=== PATIENT | female | born 1985 | race Caucasian/White ===

== ENCOUNTER 2019-05-29 14:27 | Inpatient (IN) ==
[2019-05-29] MEDS ORDERED: NS 1,000 ML IV ONE ×4 (14:38→17:14)
[2019-05-29] MEDS ORDERED: ATIVAN IV ONE (14:38)
[2019-05-29] MEDS ORDERED: BENADRYL IV ONE (14:38)
[2019-05-29] MEDS ORDERED: TORADOL IV ONE (14:39)
[2019-05-29] MEDS ORDERED: LOPRESSOR IV ONE (14:42)
[2019-05-29 15:09] LABS: URINE SOURCE CLEAN CATCH
[2019-05-29 15:12] LABS: BASO# 0.03 X1000 (0.0-0.2); BASO% 0.2 % (0.0-0.8); HEMATOCRIT 37.5 % (37.0-47.0); HEMOGLOBIN 12.5 g/dL (12.0-16.0); IMM GRAN# 0.06 X1000 (0.0-0.04); IMM GRAN% 0.3 % (0.0-0.5); LYMPH# 3.54 X1000 (1.2-3.4); LYMPH% 18.5 % (20.5-51.1); MCH 29.5 PG (27-31); MCHC 33.3 g/dL (33-37); MCV 88.4 FL (81-99); MONO# 1.18 X1000 (0.11-0.59); MONO% 6.2 % (1.7-9.3); NEUT# 14.36 X1000 (1.4-6.5); NEUT% 74.8 % (42.2-75.2); PLT 408 X1000 (130-400); RBC 4.24 XMIL (4.2-5.4); RDW 14.3 % (11.5-14.5); WBC 19.17 X1000 (4.8-10.8)
[2019-05-29 15:29] LABS: AGAP 22; ALB/GLOB RATIO 1.2; ALBUMIN 4.7 g/dL (3.5-5.0); ALKALINE PHOSPHATASE 56 U/L (32-104); BUN 13 mg/dL (8-22); CALCIUM 9.8 mg/dL (8.8-10.2); CHLORIDE 99 mmol/L (98-107); COSMO 279; CREATININE 0.7 mg/dL (0.5-0.9); ESTIMATED GFR > 60; GLUCOSE 124 mg/dL (70-104); GOT 20 U/L (10-30); GPT 15 U/L (10-36); POTASSIUM 3.6 mmol/L (3.5-5.1); SODIUM 139 mmol/L (136-145); TCO2 18 mmol/L (25-35); TOTAL BILIRUBIN 1.05 mg/dL (0.20-1.00); TOTAL PROTEIN 8.5 g/dL (6.3-8.3)
--- NOTE | 2019-05-29 15:29 | EKG Report ---
Test Performed on : 05/29/2019 2:32:33 PM Test Reason : tachycardia Blood Pressure : / mmHG Vent. Rate : 151 BPM Atrial Rate : 151 BPM P-R Int : 132 ms QRS Dur : 074 ms QT Int : 254 ms P-R-T Axes : 037 018 030 degrees QTc Int : 402 ms Sinus tachycardia. Otherwise normal ECG No previous ECGs available Unconfirmed Result
[2019-05-29 15:36] LABS: BILIRUBIN URINE NEGATIVE (NEGATIVE); BLOOD URINE NEGATIVE (NEGATIVE); COLOR ORANGE; GLUCOSE URINE NEGATIVE (NEGATIVE); KETONE URINE TRACE mg/dL (NEGATIVE); LEUKOCYTES URINE NEGATIVE (NEGATIVE); NITRITE URINE POSITIVE (NEGATIVE); PROTEIN URINE 30 mg/dL (NEGATIVE); SP GRAVITY URINE 1.034; TURBIDITY URINE HAZY (CLEAR); UROBILINOGEN URINE NORMAL (NORMAL)
[2019-05-29 15:38] LABS: UR EPITHELIAL CELLS <10 /HPF (<10); URINE BACTERIA 4+ /HPF; URINE RBC <10 /HPF (<10); URINE WBC <10 /HPF (<10)
--- NOTE | 2019-05-29 15:40 | Diag Imaging Result Doc PS360 ---
EXAM: CHEST-PORTABLE HISTORY: tachycardia TECHNIQUE: Single view COMPARISON: 04/27/2012 FINDINGS: The lungs are well expanded. The heart is not enlarged. The vessels are not distended. There are no infiltrates. No effusion identified. No change in the right upper lung nodule. IMPRESSION: Stable chest Electronically signed by Omega Dodd 05/29/2019 3:38 PM
[2019-05-29] MEDS ORDERED: ROCEPHIN 1 GM in NS 50 ML IV ONE ×2 (16:00→16:41)
[2019-05-29] MEDS ORDERED: TYLENOL PO ONE (16:04)
--- NOTE | 2019-05-29 17:13 | PROVIDER DOCUMENTATION ---
This chart was entered by Linda Zarate Scribe, acting as scribe for Owen Manning MD. HPI-General Adult - General Chief Complaint: Palpitations Stated Complaint: TACHYCARDIA Time Seen by Provider: 05/29/19 14:28 Source: patient (pt is poor historian due to AMS), EMS (First response) Allergies/Adverse Reactions: Patient Allergies Allergy/AdvReac Type Severity Reaction Status Date / Time latex Allergy ITCHING Verified 05/29/19 14:50 Home Medications: Home Medication List Medication Instructions Recorded Confirmed Last Taken Type Ciprofloxacin [Cipro] 250 mg PO BID #6 tablet 08/22/16 Unknown Rx Ondansetron HCl [Zofran] 4 mg PO Q6H PRN #20 tablet 08/22/16 Unknown Rx Cephalexin [Keflex] 500 mg PO TID #21 capsule 10/09/16 Unknown Rx Promethazine [Phenergan] 25 mg PO Q6H PRN PRN #20 tablet 10/09/16 Unknown Rx Armodafinil [Nuvigil] 150 mg PO DAILY 05/29/19 05/29/19 1 Day Ago History ~05/28/19 - History of Present Illness -Gen Adult Nature of Presenting Problems: 33yowf brought into ED via EMS after family called about possible vertigo that began last night. EMS states she had right ear surgery about 5 weeks ago and pt has a hx of SVT's. Her pre-hospital EKG showed sinus tachycardia. She had mild AMS and stated she "can't think" when Dr. Manning was asking her questions. She stated she had head and mouth pain, has been vomiting for 2 days, and is worried about a possible ear infection from her surgery. She also stated she saw Dr. Borja a few weeks ago and has a new rx for NuVigil. Location of Pain/Injury: reports: head (left ear) Pain Radiation: reports: other (mouth) Quality of Pain: reports: other (patient sts it was difficult to describe pain) Severity: reports: mild Onset/Duration: reports: last night Timing: reports: still present, constant Context/Activities at Onset: reports: light activity Modifying Factors: improves with: nothing Associated Symptoms: reports: EENT symptoms, vomiting (vomiting for 2 days), other (patient states she "can't think"). denies: chest pain, shortness of breath Similar Symptoms Previously?: Yes Recently seen or treated by another doctor?: Yes (Dr. Borja) Review of Systems - Adult - REVIEW OF SYSTEMS - ADULT Constitutional: reports: no symptoms reported Eyes: reports: no symptoms reported Ears, Nose, Mouth & Throat: reports: ear pain Cardiovascular: denies: chest pain, edema, syncope Respiratory: denies: cough, shortness of breath Gastrointestinal: reports: see HPI, vomiting (sx for 2 days). denies: abdominal pain, diarrhea Genitourinary: reports: no symptoms reported Musculoskeletal: reports: no symptoms reported Integumentary: reports: no symptoms reported Neurological: reports: see HPI, headache/migraines, other (patient states she "can't think" when Dr. Manning was asking questions). denies: slurred speech Psychiatric: reports: no symptoms reported Endocrine: reports: no symptoms reported Hematologic/Lymphatic: reports: no symptoms reported Allergic/Immunologic: reports: no symptoms reported All Other Systems: Reviewed and Negative Past History - Adult - PAST MEDICAL HISTORY-ADULT Review of Records: reports: Nursing Assessment Review, Medications Reviewed, Social history reviewed & non-contributory. Major Childhood Illnesses: reports: denies history Cardiovascular: reports: denies history Respiratory: reports: asthma Gastrointestinal: reports: denies history Obstetrical/Gynecological: reports: denies history Genitourinary: reports: kidney stones Musculoskeletal: reports: denies history Neurological: reports: denies history Psychiatric: reports: other (ADD) Endocrine/Immune: reports: denies history Other Conditions: reports: denies history - PRIOR SURGERIES/PROCEDURES Surgical/Procedure History: reports: recent surgery (recent left ear surgery), BTL, - IMMUNIZATION STATUS Childhood Immunizations: See Nurse Assessment Flu Vaccine: See Nurse Assessment - FAMILY HISTORY Family History: reviewed, not pertinent - SOCIAL HISTORY Smoking: denies Substance Use: denies Alcohol Use Frequency: never Living Situation: family Physical Exam-General - PHYSICAL EXAM-ADULT Exam Limited by: slightly confused Initial Vital Signs Reviewed: Yes (Temp 100.3, Pulse 143, RR 26, BP 140/102) - CONSTITUTIONAL General Appearance: alert, anxious - EYES Eyes: PERRL/EOMI, pink conjunctivae - HEAD, EARS, NOSE, MOUTH & THROAT HENMT: moist mucous membranes, other (mild tenderness with movement of left tragus; left ear canal obstructed by white material) - NECK Neck: non-tender, full range of motion, supple. negative: Brudzinski's sign, meningismus, other (koernig's) - RESPIRATORY Respiratory: increased rate - CARDIOVASCULAR Cardiovascular: tachycardia. 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 negative: normal thought process Progress - PLAN OF CARE/RESULTS Progress/Plan/Lab Results: Vital Signs - 8 hr 05/29/19 14:38 Temperature 100.3 F H Pulse Rate 143 H Respiratory Rate 26 H Blood Pressure 140/102 O2 Sat by Pulse Oximetry 100 Orders Category Date Time Status ED: Urine Bedside ORDERED Care 05/29/19 14:39 Active NEWS Score >or=5:Order NEWS Bundle S.O. NOW Care 05/29/19 14:44 Active Nursing- Obtain EKG once Care 05/29/19 14:38 Active CHEST-PORTABLE [RAD] Stat Exams 05/29/19 14:39 Ordered CBC WITH ELECTRONIC DIFF [HEME] Stat Lab 05/29/19 14:38 Uncollected COMPREHENSIVE METABOLIC PANEL [CHEM] Stat Lab 05/29/19 14:38 Uncollected MAGNESIUM [CHEM] Stat Lab 05/29/19 14:38 Uncollected PRO B-NATRIURETIC PEPTIDE Stat Lab 05/29/19 14:38 Uncollected TROPONIN T HIGH SENSITIVITY Stat Lab 05/29/19 14:38 Uncollected TSH Stat Lab 05/29/19 14:38 Ordered URINALYSIS W/POSS RFLX CULT [URINALYSIS] Stat Lab 05/29/19 14:39 Uncollected URINE DRUG SCREEN Stat Lab 05/29/19 14:39 Uncollected 0.9% Sodium Chloride Inj [Ns] 1,000 ml Med 05/29/19 14:38 Active IV 999 mls/hr Diphenhydramine [Benadryl] Med 05/29/19 14:38 Discontinued 25 mg IV NOW ONE Ketorolac [Toradol] Med 05/29/19 14:39 Discontinued 30 mg IV NOW ONE Lorazepam [Ativan] Med 05/29/19 14:38 Discontinued 1 mg IV NOW ONE Metoprolol [Lopressor] Med 05/29/19 14:42 Discontinued 5 mg IV NOW ONE EKG [EKG] Stat Ther 05/29/19 14:38 Ordered Result Diagrams: 05/29/19 11:45 05/29/19 11:45 - REASSESSMENT Reassessment #1 Time Reassessed: 16:41 Status: improving (GIven IVF bolus, po acetaminophen, IV rocephin 2gm for pyelonephritis. Patient has severe sepsis without septic shock. Will need admission. 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 The heart is not enlarged. The vessels are not distended. There are no infiltrates. No effusion identified. No change in the right upper lung nodule. IMPRESSION: Stable chest Electronically signed by Omega Dodd 05/29/2019 3:38 PM) - CONSULTS/PCP/HOSPITALIST Notification #1 *Consult/PCP/Hospitalist*: Jonh paged at [phone] Time Discussed: 17:13 Consult Disposition: Admit (and order CT renal stone to r/o kidney stone. He will see later) Departure - Departure Date of Disposition Decision: 05/29/19 Time of Disposition Decision: 16:43 DIAGNOSIS: Pyelonephritis due to Escherichia coli Sepsis with acute organ dysfunction Qualifiers: Sepsis type: sepsis due to unspecified organism Severe sepsis acute organ dysfunction type: unspecified Severe sepsis shock status: without septic shock Qualified Code(s): A41.9 - Sepsis, unspecified organism; R65.20 - Severe sepsis without septic shock Disposition: ADMITTED INPATIENT 09 Certified Medical Emergency: Emergent Condition: Stable Referrals and Follow-Ups: Kenn Borja Jr, MD [Primary Care Provider] - - Critical Care Note This patient required my direct & personal management of CC.: Yes Total Time (mins): 40 Critical Care Statement: This patient required my direct personal management to treat or rule out processes, the absence of which, could potentiallly result in sudden, clinically significant life or limb threatening deterioration. Attestation - Physician/ SCAR Attestation Patient care was provided by Advanced Practice Provider:: No The physician spent face to face time with patient:: Yes Advanced Practice Provider documentation review:: Supervising physician onsite and consulted in the evaluation and care of this patient. The physician did have a face to face encounter with the patient. This chart was documented by the indicated scribe, (Linda Zarate Scribe) and accurately reflects the services I performed and decisions made by me, Owen Manning MD, as attested by the provider's signature.
[2019-05-29] MEDS ORDERED: TORADOL IV PRN (17:14)
[2019-05-29] MEDS ORDERED: ZOFRAN PO PRN (17:14)
--- NOTE | 2019-05-29 19:02 | Diag Imaging Result Doc PS360 ---
EXAM: CT HEAD W/O CONTRAST INDICATION: left sided headache, recent left TM surgery TECHNIQUE: This exam was performed using automated exposure control, adjustment of mA or kV according to patient size, and/or use of iterative reconstruction technique. COMPARISON: None. FINDINGS: There is no definite acute infarct given the limited sensitivity of CT versus MRI. There is no discrete intracranial mass, mass effect, or intracranial hemorrhage. There is thickening at the inferior aspect of the left tympanic membrane. Surrounding soft tissues and bony structures are essentially unremarkable, otherwise. IMPRESSION: 1.No evidence of acute intracranial pathology. 2.Thickening at the inferior aspect of the left tympanic membrane, which may be related to surgery. Electronically signed by Ken Street 05/29/2019 6:59 PM
--- NOTE | 2019-05-29 19:09 | Diag Imaging Result Doc PS360 ---
EXAM: CT RENAL STONE SEARCH INDICATION: pyelo TECHNIQUE: This exam was performed using automated exposure control, adjustment of mA or kV according to patient size, and/or use of iterative reconstruction technique. COMPARISON: 04/27/2012 FINDINGS: The gallbladder, liver, spleen, pancreas, and adrenal glands are unremarkable. There is a punctate nonobstructing intrarenal stone associated with the left kidney. There are no ureteral stones and there is no hydronephrosis. The kidneys are otherwise unremarkable as imaged with unenhanced CT. No perinephric inflammatory changes are appreciated. There is a single droplet of gas in the lumen of the urinary bladder that could have been introduced during catheterization. There is no evidence of urinary bladder wall thickening. There is mild nodularity at the uterine fundal wall on the left that probably represents a small leiomyoma. The reproductive tract is grossly unremarkable as imaged, otherwise. The appendix is normal. There are a very few diverticuli involving the descending and proximal sigmoid colon. There is no evidence of diverticulitis. There is no focal bowel wall thickening or bowel obstruction appreciated. The remainder of the GI tract is unremarkable. No focal inflammatory changes, free abdominal gas, or free fluid is appreciated. IMPRESSION: 1.Punctate nonobstructing intrarenal stone on the left. No ureteral stones and no evidence of acute obstructive uropathy. 2.No inflammatory stranding identified around either kidney. 3.No other definite acute pathology by unenhanced CT. Electronically signed by Ken Street 05/29/2019 7:07 PM
--- NOTE | 2019-05-29 19:42 | HISTORY AND PHYSICAL ---
CHIEF COMPLAINT: Altered mental status, confusion, palpitations, headache, nausea, vomiting. HISTORY OF PRESENT ILLNESS: She is a 33-year-old white female who was brought in with the above symptoms in the ER. She had a fever 101. Urine dipstick positive for infection, history of kidney stones. Apparently, she has been taking tramadol and Nuvigil. She has some type of left ear surgery. Details are not known. It was done 5 weeks ago. She was tachycardic, altered mental status, cannot think of anything. The patient has white cell count of 19,000. CT head showed some postop changes in the left ear, and she is very confused in the PVC. Most of the history was obtained from the previous reports. Basically admitted to the hospital for altered mental status, fever workup, UTI. CT scan of the abdomen and pelvis showed no evidence of pyelonephritis and intrarenal stones noted. PAST MEDICAL HISTORY: History of possible sleep apnea and kidney stones, metabolic syndrome. PAST SURGICAL HISTORY: History of kidney stones extraction, tubal ligation, left ear surgery. MEDICATIONS: Nuvigil and tramadol. ALLERGIES: Latex. 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 Mother of 2 children. Drinks alcohol. No smoking. No drug abuse. FAMILY HISTORY: Mom is alive at 72. Daddy at 54, cause was not known. PURSE FRAMER HISTORY: Last period April 08. 2, para 2, 0. REVIEW OF SYSTEMS: Some headaches. Mental confusion. No neck pain. Cardiopulmonary: No chest pain, palpitations. No shortness of breath. Gastrointestinal: No abdominal pain, slightly tender on the left side. Genitourinary: No history of hesitancy, frequency. Extremities: No swelling of legs. No joint pain. Neurologic: No focal symptoms or weakness. PHYSICAL EXAMINATION: VITAL SIGNS: Temperature is 100.8 degrees, tachycardic. Hemodynamics were stable. 5 feet 3 inches and 176 pounds. HEENT: Atraumatic, normocephalic. Pupils equal, reactive to light. Tongue is in midline. NECK: Supple. No lymphadenopathy. CHEST: Bilateral air entry. CARDIOVASCULAR: Tachycardic. ABDOMEN: Belly is soft, slightly tender in the left lower quadrant. EXTREMITIES: No peripheral edema or cyanosis. NEUROLOGICAL: No obvious neurological deficits. No meningeal signs. INVESTIGATIONS: White cell count 19.1, hematocrit 37, platelets 408,000. SMA 7 is normal. Glucose 124. LFTs were normal. Urine dipstick was positive for infection. CT head reported no evidence of acute intracranial pathology. Thickening of the inferior aspect of left tympanic membrane, which may be related to surgery. Renal CT showed intramural leiomyoma. Punctate nonobstructive intrarenal stones on the left. No inflammatory stranding identified in either kidney. ASSESSMENT AND PLAN: A 33-year-old white female admitted to the hospital with altered mental status, fever, elevated white cell count, surgery on the left ear 5 weeks ago, details are not known. Plan is IV fluids, IV Zosyn. Closely watch for the meningeal signs and follow up on urinary tract infection symptoms with a culture and sensitivity. Deep venous thrombosis prophylaxis with Lovenox. For pain control, Toradol as needed, and urine drug screen is pending and Dr. Borja is going to follow up. cc: MD Kenn Goins Jr, MD
[2019-05-29] MEDS: LOVENOX SUBQ SCH (20:24)
[2019-05-29] MEDS: ZOSYN 3.375 GM in NS 50 ML IV SCH (20:25)
[2019-05-29 20:35] LABS: UR AMPHETAMINES QUAL NONE DETECTED (NONE DETECT); UR BARBITUATES QUAL NONE DETECTED (NONE DETECT); UR BENZODIAZEPIN QUAL NONE DETECTED (NONE DETECT); UR CANNABINOIDS QUAL NONE DETECTED (NONE DETECT); UR COCAINE QUAL NONE DETECTED (NONE DETECT); UR METHADONE QUAL NONE DETECTED (NONE DETECT); UR OPIATES QUAL PRESUMPTIVE POSITIVE (NONE DETECT); UR OXYCODONE QUAL NONE DETECTED (NONE DETECT); UR PCP QUAL NONE DETECTED (NONE DETECT)
[2019-05-29] MEDS: NS 1,000 ML IV SCH (21:00)
[2019-05-30] MEDS: ZOSYN 3.375 GM in NS 50 ML IV SCH ×4 (00:37→20:21)
[2019-05-30] MEDS: TORADOL IV PRN ×2 (00:55→07:35)
[2019-05-30 06:02] LABS: BASO# 0.03 X1000 (0.0-0.2); BASO% 0.3 % (0.0-0.8); EOS# 0.07 X1000 (0.0-0.7); EOS% 0.6 % (0.0-10.0); HEMATOCRIT 33.1 % (37.0-47.0); HEMOGLOBIN 10.8 g/dL (12.0-16.0); IMM GRAN# 0.03 X1000 (0.0-0.04); IMM GRAN% 0.3 % (0.0-0.5); LYMPH# 1.82 X1000 (1.2-3.4); LYMPH% 15.8 % (20.5-51.1); MCH 29.4 PG (27-31); MCHC 32.6 g/dL (33-37); MCV 90.2 FL (81-99); MONO% 8.7 % (1.7-9.3); NEUT# 8.56 X1000 (1.4-6.5); NEUT% 74.3 % (42.2-75.2); PLT 239 X1000 (130-400); RBC 3.67 XMIL (4.2-5.4); RDW 14.2 % (11.5-14.5); WBC 11.51 X1000 (4.8-10.8)
[2019-05-30 06:29] LABS: AGAP 13; ALB/GLOB RATIO 1.1; ALBUMIN 3.4 g/dL (3.5-5.0); ALKALINE PHOSPHATASE 44 U/L (32-104); BUN 6 mg/dL (8-22); CALCIUM 8.7 mg/dL (8.8-10.2); CHLORIDE 105 mmol/L (98-107); COSMO 271; CREATININE 0.5 mg/dL (0.5-0.9); ESTIMATED GFR > 60; GLUCOSE 96 mg/dL (70-104); GOT 18 U/L (10-30); GPT 10 U/L (10-36); POTASSIUM 3.5 mmol/L (3.5-5.1); SODIUM 137 mmol/L (136-145); TCO2 19 mmol/L (25-35); TOTAL BILIRUBIN 0.96 mg/dL (0.20-1.00); TOTAL PROTEIN 6.4 g/dL (6.3-8.3)
[2019-05-30] MEDS ORDERED: ROCEPHIN 2 GM in NS 50 ML IV SCH (08:00)
[2019-05-30] MEDS: NS 1,000 ML IV SCH ×2 (09:02→21:27)
--- NOTE | 2019-05-30 13:44 | PROGRESS NOTE ---
DATE: 05/30/2019 SUBJECTIVE: The patient is a little less confused than what she was. She is still hurting in her left ear. She really has no urinary tract symptoms. Came in with confusion and a high white count. She had left ear surgery that sounds like a tympanoplasty 3 weeks ago. She says her ear hurts and that she was draining out foul smelling material from her ear. She does not remember exactly who did her surgery, but said it was here in town. Apparently last night was even more confused[place] [id number] [place] [id number] after antibiotics. Urine culture was done because there was nitrite positivity, but really no pus in the urine. She says she started getting drainage down in her throat and started getting very dizzy with this and has just been confused and still feels hot she says. OBJECTIVE: Blood pressure is 115/65, respirations 12, pulse 78 regular, temp 98.8 degrees Fahrenheit. Did have a fever when she came in of 100.3 degrees, went up to 100.8 degrees, has been coming down since she has had antibiotics.HEENT: She is normocephalic. Lungs: Clear to auscultation and percussion without rhonchi, rales, or wheezes. Heart: Regular rate and rhythm without murmurs, gallops, friction rubs. Abdomen: Soft, active bowel sounds. No organomegaly or tenderness. Neurological: Intact grossly except that she is a little confused but did know the year now. She said that last night she did not. She seems to be growing gram-negative rods in her urine, so this still could be urinary tract infection. Possibly could have an infection with her ear since that is where her is. ASSESSMENT: 1. Rule out sepsis. 2. Probable UTI. 3. Status post ear surgery. 4. Altered mental status. PLAN: We will get an ENT to come take a look at her ear again. We will continue IV antibiotics. cc: Kenn Borja Jr, MD
[2019-05-30] MEDS: LOVENOX SUBQ SCH (20:21)
[2019-05-30] MEDS: CIPRODEX OTIC SUSPENSION LEFT EAR SCH (20:22)
[2019-05-31] MEDS: ZOSYN 3.375 GM in NS 50 ML IV SCH ×4 (02:50→20:54)
[2019-05-31 06:04] LABS: BASO# 0.02 X1000 (0.0-0.2); BASO% 0.2 % (0.0-0.8); EOS# 0.28 X1000 (0.0-0.7); EOS% 3.4 % (0.0-10.0); HEMATOCRIT 35.2 % (37.0-47.0); HEMOGLOBIN 11.6 g/dL (12.0-16.0); LYMPH# 2.65 X1000 (1.2-3.4); LYMPH% 31.7 % (20.5-51.1); MCH 29.7 PG (27-31); MCV 90.3 FL (81-99); MONO# 0.52 X1000 (0.11-0.59); MONO% 6.2 % (1.7-9.3); MPV 10.3 FL (7.4-10.4); NEUT# 4.88 X1000 (1.4-6.5); NEUT% 58.5 % (42.2-75.2); PLT 261 X1000 (130-400); RDW 14.2 % (11.5-14.5); WBC 8.35 X1000 (4.8-10.8)
[2019-05-31 06:24] LABS: AGAP 13; BUN 6 mg/dL (8-22); CALCIUM 9.2 mg/dL (8.8-10.2); CHLORIDE 102 mmol/L (98-107); COSMO 275; CREATININE 0.6 mg/dL (0.5-0.9); ESTIMATED GFR > 60; GLUCOSE 93 mg/dL (70-104); POTASSIUM 3.4 mmol/L (3.5-5.1); SODIUM 139 mmol/L (136-145); TCO2 24 mmol/L (25-35)
[2019-05-31] MEDS: CIPRODEX OTIC SUSPENSION LEFT EAR SCH ×2 (08:39→20:55)
[2019-05-31] MEDS: NS 1,000 ML IV SCH (10:57)
--- NOTE | 2019-05-31 11:58 | PROGRESS NOTE ---
DATE: 05/31/2019 SUBJECTIVE: The patient says she still has confusion, still does not remember who did her surgeries. She says she has had memory problems all her life, but this is much worse. She wanted to go home but I am concerned because of her memory. She does have a urinary tract infection with Escherichia coli and she has had recent ear surgery. CT scan of the head was really noncontributory toward anything that looked like a tumor or stroke. She does not really act like a meningitis, but said that she has had stuff running out of her left ear. I have a consult in with ENT, but they have not seen her yet. I have encouraged her to stay in the hospital and let us get her thinking cleared up and have ENT look at her ear. I am not sure whether she will do that or check out against medical advice, as she has been threatening to do that with the nurses even before I came in today. OBJECTIVE: Vital Signs: Blood pressure 118/63, respirations 17, pulse 54, temperature 98.1 degrees Fahrenheit. HEENT: She is normocephalic. EOMS intact. PERRLA. Throat clear. Lungs: Clear to auscultation and percussion without rhonchi, rales, or wheezes. Heart: Regular rate and rhythm without murmurs, gallops, friction rubs. Abdomen: Soft. Active bowel sounds. No organomegaly or tenderness. Neurological: Intact grossly except she looks anxious and she still has some lapses in her memory. Whether this is all from the urinary tract infection or there is something else going on, I am not sure at this point. PLAN: We will encourage her to continue with IV antibiotics at least for another day or 2 and have ENT evaluate her. As far as the memory problems go, I do not know whether this has been accentuated by the UTI and that she has had a problem, she has been on Nuvigil at home. cc: Kenn Borja Jr, MD
[2019-05-31 13:04] LABS: URINE SOURCE CLEAN CATCH
[2019-05-31 13:14] LABS: BILIRUBIN URINE NEGATIVE (NEGATIVE); BLOOD URINE NEGATIVE (NEGATIVE); COLOR YELLOW; GLUCOSE URINE NEGATIVE (NEGATIVE); KETONE URINE NEGATIVE (NEGATIVE); LEUKOCYTES URINE NEGATIVE (NEGATIVE); NITRITE URINE NEGATIVE (NEGATIVE); PROTEIN URINE TRACE mg/dL (NEGATIVE); SP GRAVITY URINE 1.021; TURBIDITY URINE HAZY (CLEAR); UROBILINOGEN URINE NORMAL (NORMAL)
[2019-05-31 13:20] LABS: UR EPITHELIAL CELLS >10 /HPF (<10); URINE BACTERIA NEGATIVE /HPF; URINE RBC <10 /HPF (<10); URINE WBC <10 /HPF (<10)
[2019-05-31 13:47] LABS: URINE YEAST PRESENT
[2019-05-31] MEDS: TYLENOL PO PRN (20:04)
[2019-05-31] MEDS: LOVENOX SUBQ SCH (20:55)
[2019-05-31] MEDS: TORADOL IV PRN (21:10)
[2019-06-01] MEDS: ZOSYN 3.375 GM in NS 50 ML IV SCH ×4 (01:33→20:17)
[2019-06-01] MEDS: NS 1,000 ML IV SCH ×2 (01:34→10:42)
[2019-06-01 05:53] LABS: BASO# 0.02 X1000 (0.0-0.2); BASO% 0.3 % (0.0-0.8); EOS# 0.32 X1000 (0.0-0.7); EOS% 4.7 % (0.0-10.0); HEMATOCRIT 31.2 % (37.0-47.0); HEMOGLOBIN 10.2 g/dL (12.0-16.0); IMM GRAN# 0.02 X1000 (0.0-0.04); IMM GRAN% 0.3 % (0.0-0.5); LYMPH# 2.27 X1000 (1.2-3.4); LYMPH% 33.5 % (20.5-51.1); MCH 29.7 PG (27-31); MCHC 32.7 g/dL (33-37); MCV 90.7 FL (81-99); MONO# 0.46 X1000 (0.11-0.59); MONO% 6.8 % (1.7-9.3); MPV 10.3 FL (7.4-10.4); NEUT# 3.68 X1000 (1.4-6.5); NEUT% 54.4 % (42.2-75.2); PLT 213 X1000 (130-400); RBC 3.44 XMIL (4.2-5.4); RDW 14.1 % (11.5-14.5); WBC 6.77 X1000 (4.8-10.8)
[2019-06-01 06:17] LABS: AGAP 11; BUN 7 mg/dL (8-22); CALCIUM 8.5 mg/dL (8.8-10.2); CHLORIDE 103 mmol/L (98-107); COSMO 268; CREATININE 0.6 mg/dL (0.5-0.9); ESTIMATED GFR > 60; GLUCOSE 94 mg/dL (70-104); POTASSIUM 3.4 mmol/L (3.5-5.1); SODIUM 135 mmol/L (136-145); TCO2 21 mmol/L (25-35)
[2019-06-01] MEDS: CIPRODEX OTIC SUSPENSION LEFT EAR SCH ×2 (08:05→22:50)
--- NOTE | 2019-06-01 10:34 | PROGRESS NOTE ---
DATE: 06/01/2019 SUBJECTIVE: The patient says she still does not feel right in her head. She cannot remember certain things. She initially told me that she had her ear surgery here in [place]. Now, she says it was either in [place] or [place], but it was through the [facility], so it was not one of the local doctors. ENT has not come by after consultation, perhaps because it is not their patient. She says she is still having some drainage from her ear. CT scan did show a little thickening of the tympanic membrane, possibly just postoperatively, but otherwise was normal. OBJECTIVE: Vital Signs: Stable. She ran a little 99.1 degree temp yesterday at one time, but now temp is 98.1 degrees Fahrenheit, pulse 68 and regular, respirations 18, blood pressure 121/83, oxygen saturation is 100% on room air. HEENT: She is normocephalic. EOMs intact. PERRLA. Throat clear. Lungs: Clear to auscultation and percussion without rhonchi, rales, or wheezes. Heart: Regular rate and rhythm without murmurs, gallops, friction rubs. Abdomen: Soft. Active bowel sounds. No organomegaly or tenderness. Neurological: Intact grossly, except that there are certain things that she does not remember. She knows who the President is, could not tell me today's date until she cheated by looking up on the chart in the room, and then laughed about it. She says she definitely still feels foggy. So far, all the testing has been negative. She does have a UTI with Escherichia coli, and is on Zosyn for that. Urine seems to be cleared, but will continue the antibiotics. Will get Neurology and ENT to look at her. Will try to do SLUMS test. cc: Kenn Borja Jr, MD
[2019-06-01] MEDS: TORADOL IV PRN ×3 (10:42→20:18)
[2019-06-01] MEDS: TYLENOL PO PRN (13:07)
[2019-06-01] MEDS: LOVENOX SUBQ SCH (20:17)
[2019-06-02] MEDS: ZOSYN 3.375 GM in NS 50 ML IV SCH ×3 (02:24→14:00)
[2019-06-02] MEDS: NS 1,000 ML IV SCH ×2 (02:24→17:27)
[2019-06-02 06:46] LABS: BASO# 0.02 X1000 (0.0-0.2); BASO% 0.2 % (0.0-0.8); EOS# 0.31 X1000 (0.0-0.7); HEMATOCRIT 30.8 % (37.0-47.0); HEMOGLOBIN 10.1 g/dL (12.0-16.0); IMM GRAN# 0.03 X1000 (0.0-0.04); IMM GRAN% 0.3 % (0.0-0.5); LYMPH# 2.42 X1000 (1.2-3.4); LYMPH% 23.4 % (20.5-51.1); MCH 29.8 PG (27-31); MCHC 32.8 g/dL (33-37); MCV 90.9 FL (81-99); MONO# 0.58 X1000 (0.11-0.59); MONO% 5.6 % (1.7-9.3); MPV 10.4 FL (7.4-10.4); NEUT# 6.96 X1000 (1.4-6.5); NEUT% 67.5 % (42.2-75.2); PLT 235 X1000 (130-400); RBC 3.39 XMIL (4.2-5.4); RDW 14.2 % (11.5-14.5); WBC 10.32 X1000 (4.8-10.8)
[2019-06-02 07:15] LABS: AGAP 12; BUN 10 mg/dL (8-22); CALCIUM 8.9 mg/dL (8.8-10.2); CHLORIDE 105 mmol/L (98-107); COSMO 276; CREATININE 0.6 mg/dL (0.5-0.9); ESTIMATED GFR > 60; GLUCOSE 96 mg/dL (70-104); POTASSIUM 3.5 mmol/L (3.5-5.1); SODIUM 139 mmol/L (136-145); TCO2 22 mmol/L (25-35)
[2019-06-02] MEDS: CIPRODEX OTIC SUSPENSION LEFT EAR SCH (08:41)
--- NOTE | 2019-06-02 09:08 | PROGRESS NOTE ---
DATE: 06/02/2019 SUBJECTIVE: The patient says she is feeling better today. She says she is thinking better. Still cannot tell me who her patient transportation driver was who did her surgery. Her big complaint since she came in is that she has not felt well with her thinking. I have a neurology consult put in and an ENT consult put in to evaluate her ear which has still been draining. She is still putting drops in her ear. OBJECTIVE: Blood pressure 136/81, respirations 18, pulse 88, temperature 98.8 degrees. HEENT: She is normocephalic. EOMs intact. PERRLA. Throat clear. Lungs: Clear to auscultation and percussion without rhonchi, rales, or wheezes. Heart: Regular rate and rhythm without murmurs, gallops, or friction rubs. Abdomen: Soft. Active bowel sounds. No organomegaly or tenderness. The patient does look more bright today. I had asked the nursing staff to see if they could get a SLUMS test done. I do not see it on the chart. I will try to find out if it was done or not. We will have neurology evaluate and then make a decision. ASSESSMENT: 1. Altered mental status. 2. Urinary tract infection. 3. Status post left ear surgery. PLAN: As above with consults. cc: Kenn Borja Jr, MD
--- NOTE | 2019-06-02 11:48 | NEUROLOGY CONSULTATION ---
DATE: 06/02/2019 HISTORY OF PRESENT ILLNESS: Ms. Concepcion is 33 years old. She has had some prior episodes of headache with associated features typical of migraine. She presents now with possible altered mentation or altered awareness. The history from the patient, is that over the last few weeks or so she has noticed periods of dim vision, periods of sparkling stars in her vision globally, and sometimes a sense that vision disturbance begins superiorly and then falls across her visual field near center of vision, equal on left and right. She has had some nausea and vomiting. She has had some soreness in her neck. She has had a headache, and particularly pain around her recently operated ear. She thinks she might have had unsteady gait. She reports she sometimes finds herself seated uninjured but without awareness of how she came to be in that spot. She has not found herself waking up on the floor or injured. There has been no incontinence, tongue biting, lip biting, or other seizure-like feature. There has never been a focal neurologic feature. All of this has been associated with significant tachypalpitations. She reports similar, but milder series of episodes going on for a few weeks about 11 months ago. She has a history of episodic headaches which are typical of migraines. These are usually 1-1.5 day, global, bifrontal, aching and throbbing with nausea and photophobia, sometimes with vision disturbance, and sometimes with visual scintillations. There has not been definite altered awareness or unconsciousness associated with prior headache episodes. There is a family history of headache, including father and siblings. There is no history of serious head injury, previous diagnosed stroke, seizure, or other neurologic event. Ethanol intake is moderate and has not had an effect on her migraine or on the recent symptoms. Her only home medicines are Nuvigil and tramadol. She reports taking these as directed. She denies illicit drug use. Urine drug screen was positive for opiates. I do not know if tramadol explains that or not. Lab shows WBC initially 19,000 and that corrected. She has anemia. Chemistries were unremarkable. A noncontrast CT of the head showed nothing remarkable. She had a temperature of 101 degrees initially but has been afebrile for the last few days. Heart rate was 140s initially and recently 60s to 80s. Systolic blood pressures have ranged 110s to 140s. PHYSICAL EXAMINATION: On exam, Ms. Concepcion is awake, alert, attentive, and appropriate. Her speech is not dysarthric. Language function is intact on careful bedside testing. Recent and remote memory are good. She scored 30 of 30 on bedside cognitive testing. Head and neck are unremarkable. There is no meningismus. Visual farfan are full to confrontational finger counting. Extraocular movements are full. Facial motility is symmetric. Facial sensation is intact to pinprick and light touch testing. Gag is intact. Palate is midline. Tongue is midline. She can hear. I did not test her hearing carefully. Shoulder shrug is equal. Strength is normal in the arms and legs. Limb tone is symmetric. She did well on [id number] testing bilaterally. She reports good pinprick appreciation symmetrically over the hands and feet. Proprioception is normal. I did not test her gait. Plantar response is flexor bilaterally. Reflexes are 2+ at the ankles and wrists symmetrically. IMPRESSION: 1. No definite neurologic finding at this time. I do not find evidence of global or focal encephalopathy. 2. She has a clear background history of episodic headaches, typical of migraines, with usual family history noted. Migraine syndrome may account for some of her recent symptoms, including vision disturbance and subjective memory alteration. 3. Recent symptoms including tachypalpitations, global vision disturbance with scintillations, neck soreness, and head pain around recently operated ear. I do not find a neurologic explanation for these reports. Migraine may be contributing, but migraine seems unlikely to be the sole or primary explanation. RECOMMENDATIONS: In light of the negative imaging, stable course, and lack of neurologic findings, I do not have any specific suggestions. We discussed prophylactic and abortive management of migraine briefly, and I will be glad to see her as an outpatient if we need to discuss that further. I told her that, for abortive headache management, she might try one of the [id number] products containing caffeine, but that she would need to be careful if there is any associated tachycardia. If she has documented fluctuating levels of consciousness, alertness, and/or awareness, we might consider EEG electively. Thanks for asking Neurology to see Ms. Concepcion. cc: MD Kenn Stokes III, Jr, MD MTDD
[2019-06-02 15:27] VITALS: BP 133/78
--- NOTE | 2019-06-02 22:43 | DISCHARGE SUMMARY ---
ADMISSION DATE: 05/29/2019 DISCHARGE DATE: 06/02/2019 FINAL DIAGNOSIS: 1. Urinary tract infection . 2. Altered mental status. 3. Memory loss. 4. Status post surgery on left tympanic membrane. PRESENT ILLNESS: The patient came in to the hospital with altered mental status, confusion, palpitations, headache, nausea and vomiting. She had a fever of 101 degrees Fahrenheit. Urine dipstick was positive for infection. She did grow out E. coli that was sensitive to all antibiotics. Because she was tachycardic and had some mental changes, it was thought that initially she might be septic, but blood cultures came back negative. She still has some memory loss throughout the hospitalization, but has cleared significantly this afternoon. However, she still does not remember who did her surgery on her left ear. Initially, she thought it was someone here in [place] then later she told me it was through the [facility] either in [place] or [place]. I had asked ENT here to come take a look at her, but they never arrived even though the consult says that they were aware of the consult. However, at this point, I do not think it is needed. She does have some antibiotic drops that she is putting in her ears. Also she needs to find out who her ENT was who did her surgery and have follow up with that physician. I did have Neurology, Dr. Cahvez come by to see her because she complains of just not thinking straight. He thought that she may be having some migraine headaches and that might be part of what was going on. CT scan was normal. The rest of her testing was normal. Her urine has now cleared. I do not think she needs any more antibiotics. PHYSICAL EXAMINATION: Vital signs: Blood pressure is 133/78, respirations 14, pulse 74, temperature 98.1 degrees Fahrenheit. HEENT: She is normocephalic. EOMS intact. PERRLA. Throat clear. Lungs: Clear to auscultation and percussion without rhonchi, rales or wheezes. Heart: Regular rate and rhythm without murmurs, gallops, friction rubs. Abdomen: Soft, active bowel sounds. No organomegaly or tenderness. Neurological: Intact grossly except she cannot remember who her surgeon kraft. Otherwise she is oriented x3. PLAN: We will discharge home. I do not think she needs any more antibiotics for UTI. We will see back in the office within 1 week. May have followup with Dr. Chavez about her migraine headaches. cc: Kenn Borja Jr, MD
== END 2019-06-02 18:35 | disposition home or self-care (01) | DRG 690 ==
LOC: ED 14:27 → 2N 18:04
PROVIDERS: ADMIT Emergency Medicine; ATTEND Emergency Medicine